=== PATIENT | male | born 1980 | race African-American/Black ===

== ENCOUNTER 2024-03-10 23:27 | Emergency (ER) | payer OTHER, SELFPAY ==
--- NOTE | 2024-03-10 23:33 | ECG_ITS ---
Test Date: 2024-03-10 23:48:59 Measurements Intervals [place] Rate: 84 P: 58 CT: 188 QRS: 67 QRSD: 90 T: 69 QT: 351 QTc: 416 Interpretive Statements SINUS RHYTHM VOLTAGE CRITERIA FOR LVH BORDERLINE ECG No previous ECG available for comparison Electronically Signed On 03-11-2024 08:31:38 CDT by Jerman Acosta D.O.
--- NOTE | 2024-03-10 23:39 | ED.GENADULT ---
HPI - General Adult General Chief complaint: Psychiatric Symptoms <Bob Martinez MD - Last Filed: 03/15/24 12:55> Stated complaint: homicidal <Bob Martinez MD - Last Filed: 03/15/24 12:55> Time Seen by Provider: 03/10/24 23:32 <Bob Martinez MD - Last Filed: 03/15/24 12:55> History of Present Illness HPI narrative: 43-year-old male present to the emergency department for evaluation for homicidal statements. Patient was brought in the emergency department by police. Patient was making threatening statements to staff at [facility], patient also then made threatening statements to EMS that was transporting him to a psychiatric hospital. <Bob Martinez MD - Last Filed: 03/15/24 12:55> Related Data Allergies/adverse reactions: Allergies Allergy/AdvReac Type Severity Reaction Status Date / Time haloperidol [From Haldol] AdvReac Unknown Verified 03/10/24 23:54 <Bob Martinez MD - Last Filed: 03/15/24 12:55> Review of Systems Review of Systems: All systems reviewed & are unremarkable except as noted in HPI and below <Bob Martinez MD - Last Filed: 03/15/24 12:55> [facility] Social History Social History: Social History Substance use type: unknown <Bob Martinez MD - Last Filed: 03/15/24 12:55> Exam Narrative: APPEARANCE: Agitated, no distress HEAD: normocephalic, atraumatic. EYES: PERRLA/EOMI, conjunctivae clear. NOSE: Normal no drainage EARS:TMS clear with good light reflex. THROAT: Pharynx clear, no exudate. NECK: Supple. No adenopathy, no masses. RESPIRATORY: Airway patent, respirations nonlabored. Clear to auscultation bilaterally, no rales, rhonchi, wheezing. CARDIOVASCULAR: Regular rate and rhythm without murmurs rubs or gallops. ABDOMINAL: Soft, nontender, nondistended, normal bowel sounds MUSCULOSKELETAL: Moves all extremities. Strength/ROM intact, No edema, No calf tenderness. NEURO: Alert. Cranial nerves II through XII intact. Grossly intact PSYCHIATRIC: Agitated on the right <Bob Martinez MD - Last Filed: 03/15/24 12:55> Course Course Emergency Course: 0915: Patient is medically cleared for inpatient psychiatric hospitalization and medical transport. 1759: Accepted to [facility] by Dr. Tavarez <Maximus Beal MD - Last Filed: 03/12/24 13:55> Vital Signs Vital signs: Vital Signs Temperature 97.8 F 03/10/24 23:50 Pulse Rate 90 03/10/24 23:50 Respiratory Rate 18 03/10/24 23:50 Blood Pressure 118/73 03/10/24 23:50 Pulse Oximetry 95 03/10/24 23:50 Oxygen Delivery Room Air 03/10/24 23:50 Temperature 97.8 F 03/10/24 23:50 Pulse Rate 90 03/11/24 18:07 Respiratory Rate 20 03/11/24 18:07 Blood Pressure 102/71 03/11/24 18:07 Pulse Oximetry 100 03/11/24 18:07 Oxygen Delivery Room Air 03/10/24 23:50 <Bob Martinez MD - Last Filed: 03/15/24 12:55> Vital Signs Temperature 97.8 F 03/10/24 23:50 Pulse Rate 90 03/10/24 23:50 Respiratory Rate 18 03/10/24 23:50 Blood Pressure 118/73 03/10/24 23:50 Pulse Oximetry 95 03/10/24 23:50 Oxygen Delivery Room Air 03/10/24 23:50 Temperature 97.8 F 03/10/24 23:50 Pulse Rate 90 03/11/24 18:07 Respiratory Rate 20 03/11/24 18:07 Blood Pressure 102/71 03/11/24 18:07 Pulse Oximetry 100 03/11/24 18:07 Oxygen Delivery Room Air 03/10/24 23:50 <Maximus Beal MD - Last Filed: 03/12/24 13:55> Medical Decision Making MDM Narrative Medical decision making narrative: 43-year-old male presents to the emergency department for evaluation of homicidal ideation. Patient is medically cleared for evaluation by crisis. Patient is medically cleared for transportation and patient psychiatric placement as needed Patient was evaluated by the crisis counselor and patient is being involuntary placed. Patient placement is pending at time of sign-out. <Bob Martinez MD - Last Filed: 03/15/24 1
[2024-03-10 23:45] LABS: Hematocrit 35.8 % (42.0-52.0); Hemoglobin 13.2 g/dL (14.0-18.0); Mean Corpuscular HGB Conc 36.9 g/dl (32-36); Mean Corpuscular Hemoglobin 30.3 pg (26-34); Mean Corpuscular Volume 82.1 fl (80-100); Mean Platelet Volume 8.7 fl (7.4-10.4); Platelet Count Result 300 k/mm3 (150-375); Red Blood Count 4.36 M/mm3 (4.6-6.20); Red Cell Distribution Width 12.5 % (11.5-14.5); White Blood Count 10.4 K/mm3 (4.5-10.0)
[2024-03-10 23:50] VITALS: BP 118/73; PULSE 90; RESP 18; TEMP 36.6; O2SAT 95
[2024-03-11 00:01] LABS: Acetaminophen < 10 ug/mL (10-30); Alanine Aminotransferase 31 U/L (6-50); Albumin Level 4.3 g/dL (3.5-5.1); Alkaline Phosphatase 44 U/L (38-126); Anion Gap 11 mmol/L (4-12); Aspartate Amino Transferase 49 U/L (17-59); Bilirubin,Total 0.4 mg/dL (0.2-1.3); Blood Urea Nitrogen 20 mg/dL (9-20); Calcium 9.3 mg/dL (8.4-10.2); Carbon Dioxide 27 mmol/L (22-30); Chloride 100 mmol/L (98-107); Estimated CRCL calculation 105 ml/min; Estimated Glomerular Filt Rate > 60; Ethanol < 10 mg/dL (<10); Glucose 99 mg/dL (65-110); Potassium 3.9 mmol/L (3.4-5.0); Salicylate < 1.0 mg/dL (2-20); Sodium 138 mmol/L (137-145)
[2024-03-11 00:17] LABS: Total Cells Counted 100
[2024-03-11 00:18] LABS: Basophils Percent Manual 2 % (0-1); Eosinophils Absolute Manual 1.45 K/mm3 (0.02-0.50); Eosinophils Percent Manual 14 % (0-4); Lymphocytes Absolute Manual 5.82 K/mm3 (1.1-4.5); Lymphocytes Percent Manual 56 % (18-44); Monocytes Absolute Manual 0.31 K/mm3 (0.1-0.90); Monocytes Percent Manual 3 % (3-9); Neutrophils Percent Manual 25 % (46-73)
[2024-03-11 00:19] LABS: Platelet Clumps Present; Platelet Estimate Adequate (Adequate); Smudge Cells PRESENT
[2024-03-11 00:20] LABS: Hypochromasia 1+; Target Cells 1+
[2024-03-11 00:21] LABS: Anisocytosis 1+; Atypical Lymphocytes Present; Influenza A QL RT-PCR Negative (Negative); Influenza B QL RT-PCR Negative (Negative); RSV RNA, RT-PCR Negative (Negative); SARS-CoV-2 RNA PCR Negative (Negative); Schistocytes None Seen
[2024-03-11 00:48] LABS: Appearance Urine Clear (Clear); Bilirubin Urine Negative (Negative); Blood Urine Negative (Negative); Color Urine Yellow (Yellow); Glucose Urine UA Negative (Negative); Ketones Urine Negative (Negative); Leukocyte Esterase Ur Negative LEU/UL (Negative); Nitrate Urine Negative (Negative); Protein Urine Negative (Negative); Specific Grav Ur 1.018 (1.001-1.035); Urobilinogen Urine 0.2 mg/dL (<2.0); pH Urine 6.5 (5.0-9.0)
[2024-03-11 01:04] LABS: Add Urine Microscopic? NO
[2024-03-11 01:20] LABS: Barbiturate Screen Urine Negative (Negative); Benzodiazepines Screen Urine Negative (Negative)
[2024-03-11 02:10] LABS: Amphetamine Screen Urine Negative (Negative); Cannabinoid Screen Urine Negative (Negative); Cocaine Screen Urine Negative (Negative); Methadone Screen Urine Negative (Negative); Opiate Screen Urine Negative (Negative); Phencyclidine Screen Urine Negative (Negative)
[2024-03-11 07:45] VITALS: BP 108/74; PULSE 75; RESP 14; O2SAT 97
--- NOTE | 2024-03-11 07:52 | PC.NURSE ---
Meal tray ordered for pt
[2024-03-11 10:50] VITALS: BP 134/84; PULSE 107; RESP 15; O2SAT 100
[2024-03-11 11:03] LABS: Free T4 Free Thyroxine 0.93 ng/mL (0.78-2.19)
[2024-03-11 11:16] LABS: Total Triiodothyronine (T3) 1.31 NG/ML (0.97-1.69)
[2024-03-11 18:07] VITALS: BP 102/71; PULSE 90; RESP 20; O2SAT 100
[2024-03-14 08:41] LABS: T3 Free 3.3 pg/mL
== END 2024-03-11 19:36 ==
PROVIDERS: Emergency Medicine; Emergency Provider Emergency Medicine; PCP Family Medicine
DX: R45.850 Homicidal ideations (principal); Z11.52 Encounter for screening for COVID-19; R94.31 Abnormal electrocardiogram [ECG] [EKG]
CPT/HCPCS: 36415; 80053; 80307; 81003; 84439; 84443; 84480; 85025; 87637; 93005; 99285